=== PATIENT | female | born 1985 | race Caucasian/White ===

== ENCOUNTER 2018-11-29 13:05 | Emergency (ER) | payer OTHER ==
[~2018-11-29] VITALS: Ht 157.5 cm; Wt 72.6 kg
[2018-11-29] MEDS ORDERED: IBUPROFEN 400400 M2 PO (13:35)
[2018-11-29 14:12] LABS: HEMATOCRIT 37.9 % (37.0-47.0); HEMOGLOBIN 12.9 gm/dL (12.0-15.0); MCH 31.1 pg (26.0-34.0); MCV 91.7 fL (80.0-100.0); PLATELET COUNT 136 thou/uL (150-400); RBC 4.13 mil/uL (4.20-5.00); RDW 14.8 % (10.5-14.5); WBC 5.5 thou/uL (4.0-11.0)
[2018-11-29] MEDS ORDERED: DULCOLAX5 MG PO (14:15)
[2018-11-29] MEDS ORDERED: RISPERDAL50 MG/2 ML IM (14:15)
[2018-11-29 14:16] LABS: CALCIUM 9.1 mg/dL (8.5-10.1); CREATININE 1.1 mg/dL (0.6-1.0)
[2018-11-29] MEDS ORDERED: CLONIDINE0.1 PO (14:16)
[2018-11-29] MEDS ORDERED: DEPAKOTE500 MG PO (14:16)
[2018-11-29] MEDS ORDERED: VITAMIN D3400 UNIT PO (14:16)
[2018-11-29] MEDS ORDERED: NAPROSYN500 MG PO (14:18)
[2018-11-29] MEDS ORDERED: METFORMIN HCL500 MG PO (14:18)
[2018-11-29] MEDS ORDERED: ZANTAC 150MG T150 MG PO (14:18)
[2018-11-29] MEDS ORDERED: HYDROCHLOROTH12.5 M1 PO (14:18)
[2018-11-29] MEDS ORDERED: SEROQUEL 50 MG50 MG PO (14:18)
[2018-11-29] MEDS ORDERED: MELATONIN3 MG PO (14:19)
[2018-11-29] MEDS ORDERED: NEURONTIN 300300 M1 PO (14:19)
[2018-11-29] MEDS ORDERED: TOPAMAX 100 MG100 MG PO (14:19)
[2018-11-29] MEDS ORDERED: RISPERDAL2 MG PO (14:19)
[2018-11-29] MEDS ORDERED: VISTARIL 25 MG25 M1 PO (14:20)
[2018-11-29] MEDS ORDERED: SEROQUEL XR 30300 M1 PO (14:20)
[2018-11-29] MEDS ORDERED: TRAZODONE HCL100 MG PO (14:21)
[2018-11-29] MEDS ORDERED: TYLENOL325 MG PO (14:21)
[2018-11-29] MEDS ORDERED: MIRALAX17 GM PO (14:21)
[2018-11-29] MEDS ORDERED: CALCIUM500 M1 PO (14:22)
[2018-11-29 15:00] LABS: ABSOLUTE NEUTROPHILS 2.8 thou/uL (1.4-8.2)
[2018-11-29 15:02] LABS: ANISOCYTOSIS 1+
[2018-11-29 15:15] LABS: AMP/METHAMP Negative (Negative); BARBITURATES Negative (Negative); BENZODIAZEPINES Negative (Negative); COCAINE Negative (Negative); METHADONE Negative (Negative); OPIATES Negative (Negative); PCP Negative (Negative)
[2018-11-29 15:20] LABS: URINE BILIRUBIN NEGATIVE (Negative); URINE BLOOD NEGATIVE (Negative); URINE CLARITY CLEAR; URINE COLOR YELLOW; URINE GLUCOSE-RANDOM* NEGATIVE (Negative); URINE KETONES TRACE (Negative); URINE LEUKOCYTES-REFLEX NEGATIVE (Negative); URINE NITRITE-REFLEX NEGATIVE (Negative); URINE PROTEIN (DIPSTICK) NEGATIVE (Negative)
[2018-11-29 19:06] VITALS: BP 114/76
== END 2018-11-29 19:10 ==
LOC: ER 13:05
PROVIDERS: Emergency Medicine
DX: M25.552 Pain in left hip (principal); E10.9 Type 1 diabetes mellitus without complications; F17.210 Nicotine dependence, cigarettes, uncomplicated; Z86.69 Personal history of other diseases of the nervous system and sense organs; Z79.899 Other long term (current) drug therapy; W18.30XA Fall on same level, unspecified, initial encounter; Y93.89 Activity, other specified; Y92.89 Other specified places as the place of occurrence of the external cause; Y99.8 Other external cause status

== ENCOUNTER 2018-12-26 13:34 | Emergency (ER) | payer OTHER ==
[~2018-12-26] VITALS: Ht 172.7 cm; Wt 86.2 kg
[2018-12-26 14:45] LABS: CALCIUM 8.1 mg/dL (8.5-10.1); CREATININE 1.1 mg/dL (0.6-1.0); POTASSIUM 3.5 mmol/L (3.5-5.1)
[2018-12-26 14:51] LABS: ALBUMIN 3.3 g/dL (3.4-5.0); TOTAL BILIRUBIN 0.3 mg/dL (<0.1-1.0); TOTAL PROTEIN 5.7 g/dL (6.4-8.2)
[2018-12-26 15:10] LABS: HEMATOCRIT 34.6 % (37.0-47.0); HEMOGLOBIN 11.7 gm/dL (12.0-15.0); MCH 31.5 pg (26.0-34.0); MCHC 33.8 g/dL (28.0-37.0); MCV 93.4 fL (80.0-100.0); PLATELET COUNT 132 thou/uL (150-400); RBC 3.71 mil/uL (4.20-5.00); WBC 5.4 thou/uL (4.0-11.0)
[2018-12-26 15:47] LABS: ABSOLUTE NEUTROPHILS 2.9 thou/uL (1.4-8.2)
[2018-12-26 15:59] LABS: URINE BILIRUBIN NEGATIVE (Negative); URINE BLOOD NEGATIVE (Negative); URINE CLARITY CLEAR; URINE COLOR YELLOW; URINE GLUCOSE-RANDOM* NEGATIVE (Negative); URINE KETONES NEGATIVE (Negative); URINE LEUKOCYTES-REFLEX NEGATIVE (Negative); URINE NITRITE-REFLEX NEGATIVE (Negative); URINE PROTEIN (DIPSTICK) NEGATIVE (Negative)
[2018-12-26 16:30] VITALS: BP 102/44
== END 2018-12-26 17:58 ==
LOC: ER 13:34
PROVIDERS: Physician Assistant
DX: S80.212A Abrasion, left knee, initial encounter (principal); S80.211A Abrasion, right knee, initial encounter; M25.561 Pain in right knee; M25.562 Pain in left knee; E10.9 Type 1 diabetes mellitus without complications; Z79.899 Other long term (current) drug therapy; Z87.820 Personal history of traumatic brain injury; W18.30XA Fall on same level, unspecified, initial encounter; Y93.89 Activity, other specified; Y92.89 Other specified places as the place of occurrence of the external cause; Y99.8 Other external cause status

== ENCOUNTER 2019-02-10 09:06 | Emergency (ER) | payer OTHER ==
[~2019-02-10] VITALS: Ht 157.5 cm; Wt 68.0 kg
[~2019-02-10 09:06] MED LIST: CALCIUM500 M1 PO; CLONIDINE0.1 PO; DEPAKOTE500 MG PO; DULCOLAX5 MG PO; HYDROCHLOROTH12.5 M1 PO; IBUPROFEN 400400 M2 PO; MELATONIN3 MG PO; METFORMIN HCL500 MG PO; MIRALAX17 GM PO; NAPROSYN500 MG PO; NEURONTIN 300300 M1 PO; RISPERDAL2 MG PO; RISPERDAL50 MG/2 ML IM; SEROQUEL 50 MG50 MG PO; SEROQUEL XR 30300 M1 PO; TOPAMAX 100 MG100 MG PO; TRAZODONE HCL100 MG PO; TYLENOL325 MG PO; VISTARIL 25 MG25 M1 PO; VITAMIN D3400 UNIT PO; ZANTAC 150MG T150 MG PO
[2019-02-10 09:07] VITALS: BP 103/60
== END 2019-02-10 10:10 | disposition home or self-care (01) ==
LOC: ER 09:06
DX: M79.604 Pain in right leg (principal); E10.9 Type 1 diabetes mellitus without complications; W01.198A Fall on same level from slipping, tripping and stumbling with subsequent striking against other object, initial encounter; Y93.01 Activity, walking, marching and hiking; Y92.128 Other place in nursing home as the place of occurrence of the external cause; Y99.8 Other external cause status

== ENCOUNTER 2020-07-16 12:12 | Emergency (ER) | payer OTHER ==
[~2020-07-16] VITALS: Ht 162.6 cm; Wt 71.2 kg
[2020-07-16] MEDS ORDERED: ASA81BEC PO (12:32)
[2020-07-16] MEDS ORDERED: VITAMIN B-121000 MC2 PO (12:42)
[2020-07-16] MEDS ORDERED: VITAMIN B COMP1 EACH PO (12:42)
[2020-07-16] MEDS ORDERED: XIFAXAN550 M1 PO (12:47)
[2020-07-16] MEDS ORDERED: ATIVAN2 MG PO (12:48)
[2020-07-16] MEDS ORDERED: CATAPRES0.1 MG PO (12:49)
[2020-07-16] MEDS ORDERED: HALDOL5 MG/1 ML IM (12:50)
[2020-07-16] MEDS ORDERED: MEFENAMIC ACID250 MG PO (12:50)
[2020-07-16 13:38] LABS: ABSOLUTE NEUTROPHILS 4.1 thou/uL (1.4-8.2); BASOPHILS 0.5 % (0.0-2.0); EOSINOPHILS 0.1 % (0.0-3.0); HEMATOCRIT 41.5 % (37.0-47.0); HEMOGLOBIN 13.9 gm/dL (12.0-15.0); LYMPHOCYTES 21.9 % (24.0-44.0); MCH 31.6 pg (26.0-34.0); MCHC 33.5 g/dL (28.0-37.0); MCV 94.5 fL (80.0-100.0); MONOCYTES 17.6 % (1.0-8.0); PLATELET COUNT 137 thou/uL (150-400); POLYS 59.9 % (36.0-66.0); RDW 14.1 % (10.5-14.5); WBC 6.9 thou/uL (4.0-11.0)
[2020-07-16 13:50] LABS: URINE BLOOD NEGATIVE (Negative); URINE CLARITY SL CLOUDY; URINE COLOR YELLOW; URINE GLUCOSE-RANDOM* NEGATIVE (Negative); URINE KETONES 1+ (Negative); URINE LEUKOCYTES-REFLEX TRACE (Negative); URINE NITRITE-REFLEX NEGATIVE (Negative); URINE PROTEIN (DIPSTICK) 2+ (Negative); URINE SPECIFIC GRAVITY >= 1.030 (1.005-1.035)
[2020-07-16 13:54] LABS: ANION GAP 9 mmol/L (7-16); BUN 57 mg/dL (7-18); CHLORIDE 103 mmol/L (98-107); CO2 33 mmol/L (21-32); CREATININE 1.6 mg/dL (0.6-1.0); GLUCOSE 140 mg/dL (74-106); SODIUM 145 mmol/L (136-145); TROPONIN-I <0.06 ng/mL (<0.06)
[2020-07-16 13:54] LABS: URINE BILIRUBIN NEGATIVE (Negative)
[2020-07-16 13:55] LABS: ICTOTEST (BILI CONFIRMATORY) Negative (Negative)
[2020-07-16 14:02] LABS: CALCIUM 10.2 mg/dL (8.5-10.1)
[2020-07-16 14:13] LABS: AMP/METHAMP Negative (Negative); BARBITURATES Negative (Negative); BENZODIAZEPINES Negative (Negative); CASTS None Seen /LPF (None Seen); COCAINE Negative (Negative); CRYSTALS None Seen /LPF (None Seen); METHADONE Negative (Negative); OPIATES Negative (Negative); PCP Negative (Negative); SQUAMOUS 4-10 Moderate /LPF (0-3)
[2020-07-16 14:14] LABS: URINE RBC None Seen /HPF (0-2); URINE WBC-REFLEX 0-5 Rare /HPF (0-5); YEAST-REFLEX Present (None Seen)
[2020-07-16] MEDS ORDERED: HYDROCORTISONE30 GM TOP (14:51)
[2020-07-16] MEDS ORDERED: VOLTAREN GEL 1100 G1 TOP (14:51)
[2020-07-16] MEDS ORDERED: DEPAKOTE 250MG250 MG PO (14:52)
[2020-07-16] MEDS ORDERED: METFORMIN HCL500 M3 PO (14:53)
[2020-07-16] MEDS ORDERED: KRISTALOSE20 GM PO (14:53)
[2020-07-16] MEDS ORDERED: QUETIAPINE FUMA50 MG PO (14:54)
[2020-07-16 22:24] VITALS: BP 95/40
--- NOTE | 2020-07-17 07:17 | EKG ---
[place] [address] [place] [address] ELECTROCARDIOGRAM REPORT Name: TAYLORJANENEN Jacqueline Room #: [facility]#: [id number] Admission: 07/16/20 Attend Phys: Discharge: 07/16/20 Date of : [birth year] Report #: [id number] [facility] ED Test Date: 2020-07-16 Test Time: 13:55:04 Pat Name: NATHANIEL VAZQUEZ Department: Room: Gender: F Phlebotomist: DANIS : 1985 Requested By: Doc Santiago Order Number: [id number] MD: Emery Pryor Measurements Intervals Opp Rate: 96 P: IN: QRS: -17 QRSD: 82 T: 191 QT: 359 QTc: 454 Interpretive Statements NSR Inferior infarct, old Abnrm T, consider ischemia, anterolateral lds Baseline wander in lead(s) V2 No previous ECG available for comparison Electronically Signed On 07-17-2020 7:17:13 ABSENCE MANAGEMENT CONSULTANT by Emery Pryor [email or web address] <ELECTRONICALLY SIGNED> By: Emery Pryor MD, [facility] 07/17/20 0717 1355 1355 Emery Pryor MD, FACC /EPI
== END 2020-07-16 22:28 ==
LOC: ER 12:12
PROVIDERS: Emergency Medicine
DX: N17.9 Acute kidney failure, unspecified (principal); R41.82 Altered mental status, unspecified; E87.5 Hyperkalemia; R45.4 Irritability and anger; E10.9 Type 1 diabetes mellitus without complications; Z79.899 Other long term (current) drug therapy; Z79.82 Long term (current) use of aspirin

== ENCOUNTER 2021-03-14 14:31 | Emergency (ER) | payer OTHER ==
[~2021-03-14] VITALS: Ht 165.1 cm; Wt 65.8 kg
--- NOTE | ~2021-03-14 | EMS ---
[facility] [address] [place] [address] EMS Patient Care Report Name: NATHANIEL VAZQUEZ Room #: DEP ALESHIA Catalan#: [id number] Admission: 03/14/21 Attend Phys: Discharge: 03/14/21 Date of : [birth year] Report #: [id number] THIS REPORT FOR: //name// Report Transmitted: 03/16/2021 10:49 EMS Care Summary [place], [place]/[facility] Incident [id number] @ 03/14/2021 13:47 Incident Location [id number] [place] [address] Patient NATHANIEL VAZQUEZ Female, 35 Years 1985 Patient Address [address] [place] [id number] Patient History Hypertension (HTN),Gastro-Esophageal Reflux Disease (GERD),Anxiety,Schizoaffective Disorder,Type 1 Diabetes,Insomnia, Patient Allergies No known allergies, Patient Medications Gabapentin, Acetaminophen, Divalproex Sodium, Clonidine, Hydrochlorothiazide (Hctz), Bisacodyl, Chief Complaint PINKY TOE LACERATION Disposition Transported No Lights/[place] Dispatch Reason Hemorrhage/Laceration Transported To [facility] Narrative M30 RESPONDED TO [facility] FOR A HEMORRHAGE. M30 ARRIVED ON SCENE TO FIND PT [facility] [address] [place] [address] EMS Patient Care Report Name: NATHANIEL VAZQUEZ Room #: DEP ER Hossein#: [id number] Admission: 03/14/21 Attend Phys: Discharge: 03/14/21 Date of : [birth year] Report #: [id number] IN THE LOBBY WITH FACILITY STAFF. THE STAFF MEMBER THAT WAS WITH THE PT STATED THAT THE PT HAD STEPPED ON SOMETHING AND CUT OPEN HER PINKY TOE. THE PT REMOVED HER SOCKS AND ON THE RIGHT FOOT PINKY TOE WAS AN EXTREMELY SMALL LACERATION THAT HAD ALREADY SCABBED OVER AND WAS NO LONGER BLEEDING. PT WAS ASSESSED AND DEEMED BLS. PT WAS HELPED IN SITTING ON THE COT AND SECURED VIA SEATBELTS AND HANDRAILS UP AND TRANSFERED PT WAS REASSESSED DURING TRANSPORT WITH NO CHANGE TO PT CONDITION OR VITALS. PT WAS TRANSFERED INTO HOSPITAL VIA STRETCHER AND HELPED ONTO A HOSPITAL BED AND LEFT IN A POSITION OF COMFORT AND HANDRAILS UP. REPORT WAS GIVEN TO NURSING STAFF. M30 RETURNED TO [facility] Initial Vitals @PTAP: 94,R: 16,BP: 128/64,Pain: 0/10,GCS: 15,SpO2: 96,Revised Trauma: 12, @14:12P: 43,R: 16,BP: 95/62,Pain: 0/10,GCS: 15,SpO2: 98,Revised Trauma: 12, Assessments @14:22MENTAL:Place Oriented,Time Oriented,Event Oriented,Person Oriented,SKIN:HEENT:Head/Face: No Abnormalities,Eyes: No Abnormalities,Neck/Airway: No Abnormalities,LUNG SOUNDS:General: No Abnormalities,Left Upper: No Abnormalities,Right Upper: No Abnormalities,Left Lower: No Abnormalities,Right Lower: No Abnormalities,ABDOMEN:General: No Abnormalities,Left Upper: No Abnormalities,Right Upper: No Abnormalities,Left Lower: No Abnormalities,Right Lower: No Abnormalities,PELVIS//GI:No Abnormalities,EXTREMITIES:Right Leg: LAC,Left Arm: No Abnormalities,Right Arm: No Abnormalities,Left Leg: No Abnormalities,PULSE:NEURO:No Abnormalities, Impression Laceration/Abrasion/Hematoma (minor surface trauma) Procedures @14:22ALS AssessmentResponse: Unchanged@14:22BLS AssessmentResponse: Unchanged Timeline LOCAL COORDINATOR,BP: 128/64 M,PULSE: 94,RR: 16 R,SPO2: 96 Ox,ETCO2: ,BG: ,PAIN: 0,GCS: 15, 13:38,Call Received 13:38,Dispatch Notified 13:47,Dispatched 13:50,En Route 14:05,On Scene 14:06,At Patient 14:12,BP: 95/62 M,PULSE: 43,RR: 16 R,SPO2: 98 Ox,ETCO2: ,BG: ,PAIN: 0,GCS: 15, 14:14,Depart Scene 14:22,ALS Assessment,Response: Unchanged 14:22,BLS Assessment,Response: Unchanged 14:25,At Destination 14:48,Call Closed [facility] [address] [place] [address] EMS Patient Care Report Name: NATHANIEL VAZQUEZ Room #: DEP Hossein#: [id number] Admission: 03/14/21 Attend Phys: Discharge: 03/14/21 Date of : [birth year] Report #: [id number] Disclaimer v1.1 Copyright 2020 [employer] This EMS Care Summary contains data elements from the applicable legal record (which may be displayed differently). It is designed to provide pertinent information for the following purposes: continuity of care, clinical quality, and state data reporting. The complete legal record is available to ED staff and administrators of the receiving hospital in [employer]'s Patient Tracker. All data is provided "as is."
[~2021-03-14 14:31] MED LIST changes: +ASA81BEC PO; +ATIVAN2 MG PO; +CATAPRES0.1 MG PO; +DEPAKOTE 250MG250 MG PO; +HALDOL5 MG/1 ML IM; +HYDROCORTISONE30 GM TOP; +KRISTALOSE20 GM PO; +MEFENAMIC ACID250 MG PO; +METFORMIN HCL500 M3 PO; +QUETIAPINE FUMA50 MG PO; +VITAMIN B COMP1 EACH PO; +VITAMIN B-121000 MC2 PO; +VOLTAREN GEL 1100 G1 TOP; +XIFAXAN550 M1 PO
[2021-03-14] MEDS ORDERED: KEFLEX750 MG PO (15:46)
[2021-03-14 21:33] VITALS: BP 97/49
== END 2021-03-14 21:37 ==
LOC: ER 14:31
DX: S92.511A Displaced fracture of proximal phalanx of right lesser toe(s), initial encounter for closed fracture (principal); E11.9 Type 2 diabetes mellitus without complications; Z79.899 Other long term (current) drug therapy; X58.XXXA Exposure to other specified factors, initial encounter; Y93.89 Activity, other specified; Y92.89 Other specified places as the place of occurrence of the external cause; Y99.8 Other external cause status

== ENCOUNTER 2021-05-12 13:22 | Emergency (ER) | payer OTHER ==
[~2021-05-12] VITALS: Ht 165.1 cm; Wt 65.8 kg
--- NOTE | ~2021-05-12 | EMS ---
[address] [address] EMS Patient Care Report Name: NATHANIEL VAZQUEZ Room #: REG ALESHIA Catalan#: [id number] Admission: 05/12/21 Attend Phys: Discharge: Date of : 86 Report #: [id number] THIS REPORT FOR: //name// Report Transmitted: 05/12/2021 13:00 EMS Care Summary [place], [place]/[facility] Incident [id number] @ 05/12/2021 12:52 Incident Location [address] [facility] [address] Patient NATHANIEL VAZQUEZ Female, 35 Years 1985 Patient Address [address] [place] [address] [address] [id number] Patient History Hypertension (HTN),Gastro-Esophageal Reflux Disease (GERD),Schizophrenia,Anxiety,Past Traumatic Brain Injury,Constipation,Hypothyroidism,Schizoaffective Disorder,Type 1 Diabetes,Mild cognitive impairment,Insomnia, Patient Allergies No known allergies, Patient Medications Gabapentin, Bisacodyl, Divalproex Sodium, Acetaminophen, Clonidine, Hydrochlorothiazide (Hctz), Chief Complaint Right foot pain Disposition Transported No Lights/[place] Dispatch Reason Sick Person Transported To [address] [address] EMS Patient Care Report Name: NATHANIEL VAZQUEZ Room #: REG Hossein#: [id number] Admission: 05/12/21 Attend Phys: Discharge: Date of : [birth year] Report #: [id number] Narrative M36 dispatched on a sick person. M36 arrived to find staff and P28 rolling PT in wheelchair to meet EMS. NH staff stated PT chief complaint altered mental status. NH staff stated normal mentation is alert and oriented. PT skin pale, dry and warm. PT denied chief complaint. PT denied pain. PT stated her foot injury "must have happened when I was laying down." PT refused to answer questions from EMS. PT foot injury wrapped up PILOT PLANT OPERATOR by NH staff. NH staff stated "she does this about twice a year where she throws herself on the ground, is combative and uncooperative." PT assisted to stand and pivot from wheelchair to stretcher. PT secured with seatbelts. PT vitals monitored during transport. PT report given. PT moved self to hospital bed by rolling. PT care and belongings transferred to ER staff at [facility] without incident. M36 placed back in service. Initial Vitals @13:07P: 90,R: 20,BP: 132/102,Pain: 10/10,GCS: 14,Glucose: 200,SpO2: 98,Revised Trauma: 12, @13:13P: 84,R: 18,BP: 104/74,Pain: 10/10,GCS: 14,SpO2: 95,Revised Trauma: 12, Assessments @13:01MENTAL:Person Oriented,Confused,SKIN:Pale,HEENT:LUNG SOUNDS:ABDOMEN:PELVIS//GI:Incontinence,EXTREMITIES:Right Leg: Other,PULSE:Radial: 2+ Normal,NEURO: Impression Behavioral/psychiatric episode Procedures @13:01 ALS Assessment Response: UnchangedSucceeded @13:02 Stretcher Response: Unchanged Timeline 12:51,Call Received 12:51,Dispatch Notified 12:52,Dispatched 12:53,En Route 12:59,On Scene 13:00,At Patient 13:01,ALS Assessment,Response: UnchangedSucceeded, 13:02,Stretcher,Response: Unchanged 13:07,BP: 132/102 M,PULSE: 90,RR: 20 R,SPO2: 98 Ox,ETCO2: ,B,PAIN: 10,GCS: 14, 13:08,Depart Scene 13:13,BP: 104/74 M,PULSE: 84,RR: 18 R,SPO2: 95 Ox,ETCO2: ,BG: ,PAIN: 10,GCS: [address] [address] EMS Patient Care Report Name: NATHANIEL VAZQUEZ Room #: REG [facility].#: [id number] Admission: 05/12/21 Attend Phys: Discharge: Date of : [birth year] Report #: [id number] 14, 13:26,At Destination 13:40,Call Closed Disclaimer v1.1 Copyright 2020 [employer] This EMS Care Summary contains data elements from the applicable legal record (which may be displayed differently). It is designed to provide pertinent information for the following purposes: continuity of care, clinical quality, and state data reporting. The complete legal record is available to ED staff and administrators of the receiving hospital in [employer]'s Patient Tracker. All data is provided "as is."
[~2021-05-12 13:22] MED LIST changes: +KEFLEX750 MG PO
[2021-05-12 14:50] LABS: URINE BILIRUBIN 1+ (Negative); URINE BLOOD NEGATIVE (Negative); URINE COLOR YELLOW; URINE GLUCOSE-RANDOM* NEGATIVE (Negative); URINE KETONES TRACE (Negative); URINE LEUKOCYTES-REFLEX NEGATIVE (Negative); URINE NITRITE-REFLEX NEGATIVE (Negative); URINE PROTEIN (DIPSTICK) TRACE (Negative); URINE SPECIFIC GRAVITY >= 1.030 (1.005-1.035)
[2021-05-12 14:51] LABS: URINE CLARITY HAZY
[2021-05-12 14:52] LABS: ICTOTEST (BILI CONFIRMATORY) Negative (Negative)
[2021-05-12 14:56] LABS: ABSOLUTE NEUTROPHILS 2.8 thou/uL (1.4-8.2); BASOPHILS 0.4 % (0.0-2.0); HEMATOCRIT 38.5 % (37.0-47.0); HEMOGLOBIN 13.1 gm/dL (12.0-15.0); LYMPHOCYTES 36.1 % (24.0-44.0); MONOCYTES 17.3 % (1.0-8.0); PLATELET COUNT 87 thou/uL (150-400); POLYS 46.2 % (36.0-66.0); RBC 3.85 mil/uL (4.20-5.00); RDW 14.3 % (10.5-14.5)
[2021-05-12 15:10] LABS: CREATININE 1.1 mg/dL (0.6-1.0)
[2021-05-12 15:20] LABS: ALBUMIN 2.7 g/dL (3.4-5.0); TOTAL BILIRUBIN 0.5 mg/dL (0.2-1.0); TOTAL PROTEIN 6.2 g/dL (6.4-8.2)
[2021-05-12 15:44] LABS: AMP/METHAMP Negative (Negative); BARBITURATES Negative (Negative); BENZODIAZEPINES Negative (Negative); COCAINE Negative (Negative); METHADONE Negative (Negative); OPIATES Negative (Negative); PCP Negative (Negative)
[2021-05-12] MEDS ORDERED: CEPHALEXIN500 MG PO (18:34)
[2021-05-12] MEDS ORDERED: CENTANY30 GM TOP (18:34)
[2021-05-12 18:35] VITALS: BP 103/52
--- NOTE | 2021-05-13 07:37 | EKG ---
[address] [place] [address] ELECTROCARDIOGRAM REPORT Name: NATHANIEL VAZQUEZ Room #: [facility]#: [id number] Admission: 05/12/21 Attend Phys: Discharge: 05/12/21 Date of : 86 Report #: [id number] [facility] ED Test Date: 2021-05-12 Test Time: 13:33:29 Pat Name: NATHANIEL VAZQUEZ Department: Room: Gender: F Product Safety Tester: RAMONA : 1985 Requested By: Karoline Emanuel Order Number: [id number] MD: Emery Pryor Measurements Intervals [place] Rate: 82 P: DE: QRS: 15 QRSD: 77 T: 15 QT: 398 QTc: 465 Interpretive Statements NSR Borderline repolarization abnormality Compared to ECG 07/16/2020 13:55:04 No significant change Electronically Signed On 05-13-2021 7:36:58 CDT by Emery Pryor [email or web address] <ELECTRONICALLY SIGNED> By: Emery Pryor MD, [facility] 05/13/21 0736 1333 1333 Emery Pryor MD, FACC /EPI
== END 2021-05-12 18:35 | disposition home or self-care (01) ==
LOC: ER 13:22
PROVIDERS: Physician Assistant
DX: S90.414A Abrasion, right lesser toe(s), initial encounter (principal); Z20.822 Contact with and (suspected) exposure to COVID-19; L08.9 Local infection of the skin and subcutaneous tissue, unspecified; E86.0 Dehydration; D69.59 Other secondary thrombocytopenia; E10.9 Type 1 diabetes mellitus without complications; E03.9 Hypothyroidism, unspecified; Z79.82 Long term (current) use of aspirin; Z79.84 Long term (current) use of oral hypoglycemic drugs; Z79.891 Long term (current) use of opiate analgesic; Z79.1 Long term (current) use of non-steroidal anti-inflammatories (NSAID); Z79.899 Other long term (current) drug therapy; W19.XXXA Unspecified fall, initial encounter; Y93.89 Activity, other specified; Y92.89 Other specified places as the place of occurrence of the external cause; Y99.8 Other external cause status

== ENCOUNTER 2021-05-15 15:02 | Emergency (ER) | payer OTHER ==
[~2021-05-15] VITALS: Ht 165.1 cm; Wt 63.5 kg
--- NOTE | ~2021-05-15 | EMS ---
[address] [address] EMS Patient Care Report Name: NATHANIEL VAZQUEZ Room #: DEP ALESHIA Catalan#: [id number] Admission: 05/15/21 Attend Phys: Discharge: 05/15/21 Date of : [birth year] Report #: [id number] THIS REPORT FOR: //name// Report Transmitted: 05/16/2021 07:48 EMS Care Summary [place], [place]/[facility] Incident [id number] @ 05/15/2021 14:05 Incident Location [address] [facility] 218 Patient NATHANIEL VAZQUEZ Female, 35 Years 1985 Patient Address [id number] [place] [address] [address] [place] [address] Patient History Hypertension (HTN),Gastro-Esophageal Reflux Disease (GERD),Schizophrenia,Anxiety,Past Traumatic Brain Injury,Constipation,Hypothyroidism,Schizoaffective Disorder,Type 1 Diabetes,Mild cognitive impairment,Insomnia, Patient Allergies No known allergies, Patient Medications Bisacodyl, Acetaminophen, Hydrochlorothiazide (Hctz), Divalproex Sodium, Gabapentin, Clonidine, Chief Complaint ALOC Disposition Transported No Lights/[place] Dispatch Reason Sick Person Transported To [facility] [address] [place] [address] EMS Patient Care Report Name: NATHANIEL VAZQUEZ Room #: DEP ALESHIA Catalan#: [id number] Admission: 05/15/21 Attend Phys: Discharge: 05/15/21 Date of : [birth year] Report #: [id number] Narrative Dispatched to an apartment community in regards to a sick. On arrival, I saw patient who was inside the psychiatric facility with staff. Initial assessment revealed that patient was A&Ox4 and did not appear to be in respiratory distress. Patient's chief complaint was ALOC. Staff stated that patient's eating habits have been unusual and that patient has had ALOC since 1250 pm today. On scene fire crew stated that patient was transported on Friday for the same condition, and stated that patient frequently has episodes of ALOC. Physical assessment revealed that patient was pink warm and dry. Patient was transferred to our cot. Patient was secured and lifted into the ambulance. Treatment rendered was obtaining a complete set of baseline vital signs including a blood glucose reading and attempted vascular access with a saline lock. Patient was transported to [facility] and radio report was given en route. Patient care was transferred on arrival. No rn was available to sign. Initial Vitals @14:35P: 90,R: 16,BP: 102/67,Pain: 0/10,GCS: 14,Glucose: 90,SpO2: 96,Revised Trauma: 12, @14:37P: 104,R: 16,BP: 99/52,Pain: 0/10,GCS: 14,SpO2: 96,Revised Trauma: 12, Assessments @14:33MENTAL:Person Oriented,SKIN:HEENT:LUNG SOUNDS:ABDOMEN:PELVIS//GI:EXTREMITIES:PULSE:NEURO:No Abnormalities, Impression Altered Mental Status Procedures @14:33 ALS Assessment Response: UnchangedSucceeded @14:34 IV Therapy - Saline Lock 3cc (22 ga) Site: Forearm-Left Response: UnchangedFailed @14:34 IV Therapy - Saline Lock 3cc (22 ga) Site: Forearm-Left Response: UnchangedFailed Timeline 14:03,Call Received 14:03,Dispatch Notified 14:05,Dispatched 14:06,En Route 14:32,On Scene 14:33,At Patient 14:33,ALS Assessment,Response: UnchangedSucceeded, 14:34,IV Therapy - Saline Lock 3cc 22 ga Site: Forearm-Left,Response: UnchangedFailed, [address] [address] EMS Patient Care Report Name: NATHANIEL VAZQUEZ [id number] Admission: 05/15/21 Attend Phys: Discharge: 05/15/21 Date of : [birth year] Report #: [id number] 14:34,IV Therapy - Saline Lock 3cc 22 ga Site: Forearm-Left,Response: UnchangedFailed, 14:35,Depart Scene 14:35,BP: 102/67 M,PULSE: 90,RR: 16 R,SPO2: 96 Ox,ETCO2: ,B,PAIN: 0,GCS: 14, 14:37,BP: 99/52 M,PULSE: 104,RR: 16 R,SPO2: 96 Ox,ETCO2: ,BG: ,PAIN: 0,GCS: 14, 14:55,At Destination 15:03,Call Closed Disclaimer v1.1 Copyright 2020 [employer] This EMS Care Summary contains data elements from the applicable legal record (which may be displayed differently). It is designed to provide pertinent information for the following purposes: continuity of care, clinical quality, and state data reporting. The complete legal record is available to ED staff and administrators of the receiving hospital in [employer]'s Patient Tracker. All data is provided "as is."
[~2021-05-15 15:02] MED LIST changes: +CENTANY30 GM TOP; +CEPHALEXIN500 MG PO
[2021-05-15 15:58] LABS: ABSOLUTE NEUTROPHILS 2.7 thou/uL (1.4-8.2); BASOPHILS 0.3 % (0.0-2.0); HEMATOCRIT 39.4 % (37.0-47.0); HEMOGLOBIN 13.2 gm/dL (12.0-15.0); LYMPHOCYTES 38.4 % (24.0-44.0); MCH 33.3 pg (26.0-34.0); MCHC 33.6 g/dL (28.0-37.0); MCV 99.4 fL (80.0-100.0); MONOCYTES 12.8 % (1.0-8.0); PLATELET COUNT 99 thou/uL (150-400); POLYS 48.5 % (36.0-66.0); RBC 3.96 mil/uL (4.20-5.00); RDW 14.1 % (10.5-14.5); WBC 5.5 thou/uL (4.0-11.0)
[2021-05-15 16:10] LABS: URINE BILIRUBIN 1+ (Negative); URINE BLOOD NEGATIVE (Negative); URINE CLARITY CLEAR; URINE COLOR YELLOW; URINE GLUCOSE-RANDOM* NEGATIVE (Negative); URINE KETONES NEGATIVE (Negative); URINE LEUKOCYTES-REFLEX NEGATIVE (Negative); URINE NITRITE-REFLEX NEGATIVE (Negative); URINE PROTEIN (DIPSTICK) NEGATIVE (Negative); URINE SPECIFIC GRAVITY >= 1.030 (1.005-1.035)
[2021-05-15 16:13] LABS: ICTOTEST (BILI CONFIRMATORY) Negative (Negative)
[2021-05-15 16:18] LABS: CREATININE 1.3 mg/dL (0.6-1.0); POTASSIUM 3.6 mmol/L (3.5-5.1)
[2021-05-15 19:10] VITALS: BP 102/68
== END 2021-05-15 19:15 | disposition home or self-care (01) ==
LOC: ER 15:02
PROVIDERS: Emergency Medicine
DX: G93.40 Encephalopathy, unspecified (principal); E10.9 Type 1 diabetes mellitus without complications; E03.9 Hypothyroidism, unspecified; Z79.899 Other long term (current) drug therapy; Z79.891 Long term (current) use of opiate analgesic; Z79.1 Long term (current) use of non-steroidal anti-inflammatories (NSAID)

== ENCOUNTER 2021-06-12 02:03 | Emergency (ER) | payer OTHER ==
[~2021-06-12] VITALS: Ht 165.1 cm; Wt 70.3 kg
[2021-06-12 06:09] VITALS: BP 102/67
== END 2021-06-12 06:28 ==
LOC: ER 02:03
DX: S01.111A Laceration without foreign body of right eyelid and periocular area, initial encounter (principal); E10.9 Type 1 diabetes mellitus without complications; E03.9 Hypothyroidism, unspecified; Z79.899 Other long term (current) drug therapy; W06.XXXA Fall from bed, initial encounter; Y93.89 Activity, other specified; Y92.89 Other specified places as the place of occurrence of the external cause; Y99.8 Other external cause status

== ENCOUNTER 2021-06-26 06:39 | Emergency (ER) | payer OTHER ==
[~2021-06-26] VITALS: Ht 167.6 cm; Wt 63.5 kg
--- NOTE | ~2021-06-26 | EMS ---
[address] [address] EMS Patient Care Report Name: NATHANIEL VAZQUEZ Room #: PRE Hossein#: [id number] Admission: Attend Phys: Discharge: Date of : [birth year] Report #: [id number] THIS REPORT FOR: //name// Report Transmitted: 06/26/2021 06:19 EMS Care Summary [place], [place] Incident [id number] @ 06/26/2021 06:07 Incident Location [address] [facility] 218 Patient NATHANIEL VAZQUEZ Female, 35 Years 1985 Patient Address [address] [place] [address] [address] [place] [address] Patient History Hypertension (HTN),Gastro-Esophageal Reflux Disease (GERD),Schizophrenia,Anxiety,Past Traumatic Brain Injury,Constipation,Hypothyroidism,Schizoaffective Disorder,Type 1 Diabetes,Mild cognitive impairment,Insomnia, Patient Allergies No known allergies, Patient Medications Hydrochlorothiazide (Hctz), Gabapentin, Bisacodyl, Clonidine, Divalproex Sodium, Acetaminophen, Chief Complaint facial lac Disposition Transported No Lights/[place] Dispatch Reason [place] Transported To [address] [address] EMS Patient Care Report Name: NATHANIEL VZAQUEZ Room #: PRE [place].#: [id number] Admission: Attend Phys: Discharge: Date of : [birth year] Report #: [id number] Narrative pt was found on the floor of her bathroom, by [place] staff. pt got back up and was lying on her bed, on the floor, on our arrival. staff reports that pt has a hx of frequent falls. she had wound in her R brow, from fall approx a wk ago, that now is broken open from this fall. pt is to be eval at [facility]. pt is alert per her norm, person and place. she is semi cooperative, able to follow simple commands. staff states she is at her normal mentation. pt has minimal bleeding from wound. pt stand and assist to cot, transport w/o change. Initial Vitals @06:25P: 98,R: 18,BP: 100/73,GCS: 14,Glucose: 129,SpO2: 95,Revised Trauma: 12, Assessments @06:18MENTAL:Confused,Person Oriented,Place Oriented,SKIN:No Abnormalities,HEENT:Head/Face: Other,LUNG SOUNDS:ABDOMEN:PELVIS//GI:EXTREMITIES:PULSE:NEURO: Impression Injury of Face Procedures @06:18 ALS Assessment Response: Unchanged @06:21 Stretcher Response: Unchanged Timeline 06:04,Call Received 06:04,Dispatch Notified 06:07,Dispatched 06:09,En Route 06:15,On Scene 06:18,At Patient 06:18,ALS Assessment,Response: Unchanged 06:21,Stretcher,Response: Unchanged 06:25,Depart Scene 06:25,BP: 100/73 M,PULSE: 98,RR: 18 R,SPO2: 95 Ox,ETCO2: ,B,PAIN: ,GCS: 14, 06:34,At Destination 06:51,Call Closed Disclaimer v1.1 Copyright 2020 [employer] This EMS Care Summary contains data elements from the applicable legal record (which may be displayed differently). It is designed to provide pertinent information for the following purposes: continuity of care, clinical quality, and state data reporting. The complete legal record is available to ED staff [address] [address] EMS Patient Care Report Name: NATHANIEL VAZQUEZ Room #: PRE ALESHIA Catalan#: [id number] Admission: Attend Phys: Discharge: Date of : [birth year] Report #: [id number] and administrators of the receiving hospital in [employer]'s Patient Tracker. All data is provided "as is."
[2021-06-26] MEDS ORDERED: ANBESOL9 GM TOP (07:01)
[2021-06-26] MEDS ORDERED: NOXIFOL-D32500 UNIT PO (07:03)
[2021-06-26] MEDS ORDERED: ICY HOT 4%-1%76.5 GM TOP (07:06)
[2021-06-26] MEDS ORDERED: LEVO-T75 MCG PO (07:07)
[2021-06-26 08:05] LABS: ABSOLUTE NEUTROPHILS 3.7 thou/uL (1.4-8.2); BASOPHILS 0.3 % (0.0-2.0); HEMATOCRIT 44.8 % (37.0-47.0); HEMOGLOBIN 14.9 gm/dL (12.0-15.0); LYMPHOCYTES 32.5 % (24.0-44.0); MCH 33.5 pg (26.0-34.0); MCHC 33.3 g/dL (28.0-37.0); MCV 100.8 fL (80.0-100.0); MONOCYTES 15.6 % (1.0-8.0); PLATELET COUNT 101 thou/uL (150-400); POLYS 51.6 % (36.0-66.0); RBC 4.44 mil/uL (4.20-5.00); WBC 7.2 thou/uL (4.0-11.0)
[2021-06-26 08:07] LABS: URINE BLOOD NEGATIVE (Negative); URINE CLARITY CLEAR; URINE COLOR YELLOW; URINE GLUCOSE-RANDOM* NEGATIVE (Negative); URINE KETONES NEGATIVE (Negative); URINE LEUKOCYTES-REFLEX NEGATIVE (Negative); URINE NITRITE-REFLEX NEGATIVE (Negative); URINE PROTEIN (DIPSTICK) NEGATIVE (Negative); URINE SPECIFIC GRAVITY 1.025 (1.005-1.035)
[2021-06-26 08:23] LABS: CALCIUM 9.5 mg/dL (8.5-10.1); CREATININE 1.3 mg/dL (0.6-1.0); POTASSIUM 4.1 mmol/L (3.5-5.1)
[2021-06-26 08:26] LABS: ICTOTEST (BILI CONFIRMATORY) Negative (Negative); URINE BILIRUBIN NEGATIVE (Negative)
[2021-06-26 10:07] VITALS: BP 109/88
== END 2021-06-26 10:08 | disposition home or self-care (01) ==
LOC: ER 06:39
PROVIDERS: Student in an Organized Health Care Education/Training Program
DX: S01.111A Laceration without foreign body of right eyelid and periocular area, initial encounter (principal); E10.9 Type 1 diabetes mellitus without complications; E03.9 Hypothyroidism, unspecified; Z87.820 Personal history of traumatic brain injury; Z79.899 Other long term (current) drug therapy; Z79.82 Long term (current) use of aspirin; W18.30XA Fall on same level, unspecified, initial encounter; Y93.89 Activity, other specified; Y92.128 Other place in nursing home as the place of occurrence of the external cause; Y99.9 Unspecified external cause status